=== PATIENT | male | born 1950 | race Caucasian/White ===

== ENCOUNTER 2023-05-23 11:44 | Inpatient (IN) | payer MEDICARE ==
[2023-05-23] VITALS (7 sets, daily range): BP systolic 108–167; BP diastolic 69–93; PULSE 65–77; RESP 18; TEMP 96–97.8; O2SAT 97–100
[~2023-05-23] VITALS: Ht 170.2 cm; Wt 79.8 kg
[2023-05-23 12:27] LABS: BASOPHILS % 0.3 % (0.0-1.0); EOSINOPHILS # (AUTO) 0.1 (0.0-0.4); EOSINOPHILS % 0.6 % (0.0-6.0); HEMATOCRIT 39.8 % (38.2-49.6); HEMOGLOBIN 13.9 g/dL (14.0-18.0); LYMPHOCYTES % 8.3 % (18.0-39.1); MEAN CORPUSCULAR HEMOGLOBIN 29.7 pg (28-32); MEAN CORPUSCULAR HGB CONC 34.9 g/dL (31-35); MONOCYTES % 8.8 % (4.4-11.3); NEUTROPHILS # (AUTO) 9.7 (2.1-6.9); NEUTROPHILS % 81.5 % (38.7-80.0); PLATELET COUNT 358 x10e3/uL (140-360); RED BLOOD COUNT 4.68 x10e6/uL (4.3-5.7); RED CELL DISTRIBUTION WIDTH 12.9 % (11.7-14.4); WHITE BLOOD COUNT 11.84 x10e3/uL (4.8-10.8)
[2023-05-23 12:41] LABS: CLARITY,URINE CLOUDY (CLEAR); COLOR,URINE YELLOW (YELLOW); GLUCOSE, URINE NEGATIVE (NEGATIVE); LEUKOCYTE ESTERASE ,URINE NEGATIVE (NEGATIVE); NITRITE,URINE NEGATIVE (NEGATIVE); PH,URINE 7 (5 - 7); PROTEIN,URINE DIPSTICK NEGATIVE (NEGATIVE)
[2023-05-23 12:42] LABS: BILIRUBIN,URINE NEGATIVE (NEGATIVE); KETONES,URINE 1+ (NEGATIVE); URINE UROBILINOGEN 0.2 mg/dL (0.2 - 1)
[2023-05-23 12:55] LABS: ALBUMIN 3.6 g/dL (3.5-5.0); ALBUMIN/GLOBULIN RATIO 1.2 (0.8-2.0); ANION GAP 14.5 mmol/L (8-16); CALCIUM 8.9 mg/dL (8.4-10.2); CREATININE, SERUM 0.68 mg/dL (0.72-1.25); POTASSIUM 4.5 mmol/L (3.5-5.1); TOTAL PROTEIN 6.7 g/dL (6.5-8.1)
[2023-05-23 13:03] LABS: BACTERIA,URINE FEW /HPF; EPITHELIAL CELLS,URINE RARE /LPF; RBC,URINE 0-5 /HPF (0-5); WBC,URINE (MAN) 0-5 /HPF (0-5)
[2023-05-23] MEDS ORDERED: SODIUM CHLORIDE 0.9% 1000ML 1,000 ML IV SCH (14:00)
[2023-05-23] MEDS ORDERED: LISINOPRIL10 MG PO (18:15)
[2023-05-23] MEDS ORDERED: ONDANSETRON HCL INJ 2MG/ML 2ML 2 MG/ML VIAL IV PRN (21:45)
[2023-05-23] MEDS ORDERED: POLYETHYLENE GLYCOL 3350 17 GM PACK PO PRN (21:45)
[2023-05-23] MEDS ORDERED: HYDRALAZINE HCL 20 MG/ML VIAL IV PRN (21:45)
[2023-05-23] MEDS: SODIUM CHLORIDE 0.9% 1000ML 1,000 ML IV SCH (22:29)
[2023-05-24] VITALS (11 sets, daily range): BP systolic 110–149; BP diastolic 56–81; PULSE 64–78; RESP 18–20; TEMP 97.4–98.4; O2SAT 95–100
[2023-05-24 05:53] LABS: BASOPHILS % 0.3 % (0.0-1.0); EOSINOPHILS # (AUTO) 0.1 (0.0-0.4); EOSINOPHILS % 1.3 % (0.0-6.0); HEMATOCRIT 36.9 % (38.2-49.6); HEMOGLOBIN 12.9 g/dL (14.0-18.0); LYMPHOCYTES # (AUTO) 0.9 (1.0-3.2); LYMPHOCYTES % 8.7 % (18.0-39.1); MEAN CORPUSCULAR HEMOGLOBIN 29.6 pg (28-32); MEAN CORPUSCULAR VOLUME 84.6 fL (81-99); MONOCYTES % 9.4 % (4.4-11.3); NEUTROPHILS # (AUTO) 8.3 (2.1-6.9); NEUTROPHILS % 79.9 % (38.7-80.0); PLATELET COUNT 335 x10e3/uL (140-360); RED BLOOD COUNT 4.36 x10e6/uL (4.3-5.7); RED CELL DISTRIBUTION WIDTH 12.7 % (11.7-14.4); WHITE BLOOD COUNT 10.44 x10e3/uL (4.8-10.8)
[2023-05-24 06:22] LABS: ANION GAP 11.1 mmol/L (8-16); CALCIUM 8.1 mg/dL (8.4-10.2); CREATININE, SERUM 0.65 mg/dL (0.72-1.25); POTASSIUM 4.1 mmol/L (3.5-5.1)
[2023-05-24 06:40] LABS: CHOL/HDL RATIO 2.4 (3.9-4.7); MAGNESIUM 1.8 MG/DL (1.3-2.1); PHOSPHORUS 3.7 MG/DL (2.3-4.7)
[2023-05-24 06:57] LABS: FERRITIN 62.27 ng/mL (21.81-274.66); FREE T4 (FREE THYROXINE) 1.16 ng/dL (0.8-1.8); THYROID STIMULATING HORMONE 0.727 uIU/mL (0.350-4.940)
[2023-05-24 08:46] LABS: FOLATE 9.9 ng/mL (7.0-15.4)
[2023-05-24] MEDS: FAMOTIDINE 20 MG TAB PO SCH ×2 (09:08→17:27)
[2023-05-24] MEDS: DOCUSATE SODIUM 100 MG CAP PO SCH ×2 (09:08→17:27)
[2023-05-24] MEDS: IRON SUCROSE 100 MG in SODIUM CHLORIDE 0.9% 100 ML IV SCH (09:08)
[2023-05-24] MEDS: SODIUM CHLORIDE 0.9% 1000ML 1,000 ML IV SCH (09:08)
[2023-05-24] MEDS: ACETAMINOPHEN 325 MG TAB PO PRN (11:00)
[2023-05-24] MEDS ORDERED: ONDANSETRON HCL 4 MG ORAL DISINTEGRATING TAB PO PRN (11:15)
[2023-05-25] VITALS (9 sets, daily range): BP systolic 102–142; BP diastolic 58–92; PULSE 52–72; RESP 11–19; TEMP 97.1–97.9; O2SAT 96–99
[2023-05-25 06:27] LABS: ANION GAP 8.2 mmol/L (8-16); CALCIUM 7.9 mg/dL (8.4-10.2); CREATININE, SERUM 0.63 mg/dL (0.72-1.25); POTASSIUM 4.2 mmol/L (3.5-5.1)
[2023-05-25] MEDS: FAMOTIDINE 20 MG TAB PO SCH ×2 (08:46→16:58)
[2023-05-25] MEDS: IRON SUCROSE 100 MG in SODIUM CHLORIDE 0.9% 100 ML IV SCH (08:48)
[2023-05-25] MEDS: SODIUM CHLORIDE 1 GM TAB PO SCH ×3 (10:12→20:51)
[2023-05-25] MEDS: DOCUSATE SODIUM 100 MG CAP PO SCH ×2 (10:12→16:59)
[2023-05-25] MEDS ORDERED: SODIUM CHLORIDE 452MG TAB PO SCH (15:00)
[2023-05-25 15:46] LABS: CALCIUM 7.6 mg/dL (8.4-10.2); CREATININE, SERUM 0.59 mg/dL (0.72-1.25)
[2023-05-25] MEDS: METOPROLOL SUCCINATE 25 MG TAB XL PO SCH (18:15)
[2023-05-25] MEDS ORDERED: SODIUM CHLORIDE 3% 200 ML IV ONE (21:00)
[2023-05-25] MEDS: ACETAMINOPHEN 325 MG TAB PO PRN (22:54)
[2023-05-26] VITALS (29 sets, daily range): BP systolic 72–151; BP diastolic 39–103; PULSE 46–87; RESP 9–21; TEMP 97.3–98; O2SAT 92–100
[2023-05-26 04:52] LABS: ANION GAP 8.1 mmol/L (8-16); CALCIUM 7.9 mg/dL (8.4-10.2); CREATININE, SERUM 0.63 mg/dL (0.72-1.25); POTASSIUM 4.1 mmol/L (3.5-5.1)
[2023-05-26] MEDS: FAMOTIDINE 20 MG TAB PO SCH ×2 (07:52→16:42)
[2023-05-26 08:31] LABS: BASOPHILS % 0.4 % (0.0-1.0); EOSINOPHILS # (AUTO) 0.1 (0.0-0.4); EOSINOPHILS % 1.2 % (0.0-6.0); HEMATOCRIT 36.4 % (38.2-49.6); HEMOGLOBIN 12.8 g/dL (14.0-18.0); LYMPHOCYTES # (AUTO) 0.9 (1.0-3.2); MEAN CORPUSCULAR HEMOGLOBIN 29.6 pg (28-32); MEAN CORPUSCULAR HGB CONC 35.2 g/dL (31-35); MEAN CORPUSCULAR VOLUME 84.3 fL (81-99); MONOCYTES # (AUTO) 0.7 (0.2-0.8); MONOCYTES % 6.3 % (4.4-11.3); NEUTROPHILS # (AUTO) 9.4 (2.1-6.9); NEUTROPHILS % 83.7 % (38.7-80.0); PLATELET COUNT 312 x10e3/uL (140-360); RED BLOOD COUNT 4.32 x10e6/uL (4.3-5.7); RED CELL DISTRIBUTION WIDTH 12.7 % (11.7-14.4)
[2023-05-26] MEDS: METOPROLOL SUCCINATE 25 MG TAB XL PO SCH (08:58)
[2023-05-26] MEDS: SODIUM CHLORIDE 1 GM TAB PO SCH ×3 (08:59→19:57)
[2023-05-26] MEDS: DOCUSATE SODIUM 100 MG CAP PO SCH ×2 (08:59→16:42)
[2023-05-26] MEDS: IRON SUCROSE 100 MG in SODIUM CHLORIDE 0.9% 100 ML IV SCH (11:40)
[2023-05-27] VITALS (14 sets, daily range): BP systolic 91–141; BP diastolic 56–87; PULSE 55–78; RESP 12–22; TEMP 97.2–98.3; O2SAT 96–99
[2023-05-27 05:13] LABS: ANION GAP 11.2 mmol/L (8-16); CALCIUM 8.1 mg/dL (8.4-10.2); CREATININE, SERUM 0.64 mg/dL (0.72-1.25); MAGNESIUM 1.7 MG/DL (1.3-2.1); POTASSIUM 4.2 mmol/L (3.5-5.1)
[2023-05-27] MEDS: FAMOTIDINE 20 MG TAB PO SCH ×2 (08:11→17:32)
[2023-05-27] MEDS: SODIUM CHLORIDE 1 GM TAB PO SCH (08:36)
[2023-05-27] MEDS: DOCUSATE SODIUM 100 MG CAP PO SCH ×2 (08:37→17:32)
[2023-05-27] MEDS: METOPROLOL SUCCINATE 25 MG TAB XL PO SCH (08:37)
[2023-05-27] MEDS ORDERED: SODIUM CHLORIDE 3% 500 ML IV ONE (11:15)
[2023-05-27] MEDS ORDERED: FUROSEMIDE INJ 10 MG/ML 2 ML VIAL IV ONE (18:35)
[2023-05-27] MEDS: ACETAMINOPHEN 325 MG TAB PO PRN (22:51)
[2023-05-27] MEDS ORDERED: LORAZEPAM INJ 2 MG/ML VIAL IV ONE (23:15)
[2023-05-28] VITALS (15 sets, daily range): BP systolic 87–124; BP diastolic 56–70; PULSE 52–83; RESP 10–20; TEMP 96.5–97.8; O2SAT 95–99
[2023-05-28 06:48] LABS: ANION GAP 10.3 mmol/L (8-16); CALCIUM 8.2 mg/dL (8.4-10.2); CREATININE, SERUM 0.63 mg/dL (0.72-1.25); POTASSIUM 4.3 mmol/L (3.5-5.1)
[2023-05-28] MEDS: FAMOTIDINE 20 MG TAB PO SCH ×2 (07:44→16:06)
[2023-05-28] MEDS: METOPROLOL SUCCINATE 25 MG TAB XL PO SCH (08:14)
[2023-05-28] MEDS: DOCUSATE SODIUM 100 MG CAP PO SCH ×2 (08:14→16:06)
[2023-05-28] MEDS: TOLVAPTAN 15 MG TAB PO SCH (16:06)
[2023-05-28 21:47] LABS: ANION GAP 10.7 mmol/L (8-16); CALCIUM 8.2 mg/dL (8.4-10.2); CREATININE, SERUM 0.76 mg/dL (0.72-1.25); POTASSIUM 4.7 mmol/L (3.5-5.1)
[2023-05-29] VITALS (16 sets, daily range): BP systolic 80–111; BP diastolic 44–67; PULSE 58–80; RESP 11–16; TEMP 97–99.6; O2SAT 94–98
[2023-05-29 06:01] LABS: ANION GAP 13.7 mmol/L (8-16); CREATININE, SERUM 0.72 mg/dL (0.72-1.25); POTASSIUM 4.7 mmol/L (3.5-5.1)
[2023-05-29] MEDS: METOPROLOL SUCCINATE 25 MG TAB XL PO SCH (09:00)
[2023-05-29] MEDS: TOLVAPTAN 15 MG TAB PO SCH (09:07)
[2023-05-29] MEDS: FAMOTIDINE 20 MG TAB PO SCH ×2 (09:07→16:48)
[2023-05-29] MEDS: DOCUSATE SODIUM 100 MG CAP PO SCH ×2 (09:07→16:48)
[2023-05-29] MEDS: SODIUM CHLORIDE 0.9% 1000ML 1,000 ML IV SCH ×2 (10:49→20:28)
[2023-05-29 16:30] LABS: ANION GAP 12.5 mmol/L (8-16); CALCIUM 7.9 mg/dL (8.4-10.2); CREATININE, SERUM 0.83 mg/dL (0.72-1.25); POTASSIUM 4.5 mmol/L (3.5-5.1)
[2023-05-29] MEDS: ACETAMINOPHEN 325 MG TAB PO PRN (21:07)
[2023-05-30] VITALS (16 sets, daily range): BP systolic 101–138; BP diastolic 50–75; PULSE 53–72; RESP 10–18; TEMP 97.7–98.6; O2SAT 92–98
[2023-05-30] MEDS: SODIUM CHLORIDE 0.9% 1000ML 1,000 ML IV SCH ×2 (06:21→17:18)
[2023-05-30] MEDS: TOLVAPTAN 15 MG TAB PO SCH (08:36)
[2023-05-30] MEDS: METOPROLOL SUCCINATE 25 MG TAB XL PO SCH (08:36)
[2023-05-30] MEDS: DOCUSATE SODIUM 100 MG CAP PO SCH ×2 (08:36→17:18)
[2023-05-30] MEDS: FAMOTIDINE 20 MG TAB PO SCH ×2 (08:37→17:18)
[2023-05-30 12:51] LABS: BASOPHILS % 0.3 % (0.0-1.0); EOSINOPHILS # (AUTO) 0.1 (0.0-0.4); EOSINOPHILS % 1.1 % (0.0-6.0); HEMATOCRIT 33.6 % (38.2-49.6); HEMOGLOBIN 11.7 g/dL (14.0-18.0); LYMPHOCYTES # (AUTO) 0.7 (1.0-3.2); LYMPHOCYTES % 7.6 % (18.0-39.1); MEAN CORPUSCULAR HGB CONC 34.8 g/dL (31-35); MEAN CORPUSCULAR VOLUME 86.2 fL (81-99); MONOCYTES # (AUTO) 1.7 (0.2-0.8); MONOCYTES % 17.7 % (4.4-11.3); NEUTROPHILS # (AUTO) 7.1 (2.1-6.9); NEUTROPHILS % 72.6 % (38.7-80.0); PLATELET COUNT 247 x10e3/uL (140-360); RED CELL DISTRIBUTION WIDTH 13.4 % (11.7-14.4); WHITE BLOOD COUNT 9.74 x10e3/uL (4.8-10.8)
[2023-05-30 13:11] LABS: ANION GAP 11.2 mmol/L (8-16); CALCIUM 7.9 mg/dL (8.4-10.2); CREATININE, SERUM 0.7 mg/dL (0.72-1.25); POTASSIUM 4.2 mmol/L (3.5-5.1)
[2023-05-31] VITALS (23 sets, daily range): BP systolic 121–162; BP diastolic 62–114; PULSE 60–98; RESP 10–18; TEMP 97.5–98.6; O2SAT 90–100
[2023-05-31] MEDS: SODIUM CHLORIDE 0.9% 1000ML 1,000 ML IV SCH (04:54)
[2023-05-31 06:46] LABS: BASOPHILS % 0.3 % (0.0-1.0); EOSINOPHILS # (AUTO) 0.1 (0.0-0.4); HEMATOCRIT 32.9 % (38.2-49.6); HEMOGLOBIN 11.6 g/dL (14.0-18.0); LYMPHOCYTES # (AUTO) 0.8 (1.0-3.2); MEAN CORPUSCULAR HEMOGLOBIN 30.3 pg (28-32); MEAN CORPUSCULAR HGB CONC 35.3 g/dL (31-35); MEAN CORPUSCULAR VOLUME 85.9 fL (81-99); MONOCYTES # (AUTO) 1.8 (0.2-0.8); MONOCYTES % 14.9 % (4.4-11.3); NEUTROPHILS % 76.1 % (38.7-80.0); PLATELET COUNT 248 x10e3/uL (140-360); RED BLOOD COUNT 3.83 x10e6/uL (4.3-5.7); RED CELL DISTRIBUTION WIDTH 13.4 % (11.7-14.4); WHITE BLOOD COUNT 11.78 x10e3/uL (4.8-10.8)
[2023-05-31 07:00] LABS: ANION GAP 11.5 mmol/L (8-16); CALCIUM 7.1 mg/dL (8.4-10.2); CREATININE, SERUM 0.57 mg/dL (0.72-1.25); POTASSIUM 3.5 mmol/L (3.5-5.1)
[2023-05-31] MEDS: METOPROLOL SUCCINATE 25 MG TAB XL PO SCH (08:46)
[2023-05-31] MEDS: TOLVAPTAN 15 MG TAB PO SCH (08:46)
[2023-05-31] MEDS: DOCUSATE SODIUM 100 MG CAP PO SCH ×2 (08:46→16:58)
[2023-05-31] MEDS: FAMOTIDINE 20 MG TAB PO SCH ×2 (08:46→16:58)
[2023-05-31] MEDS ORDERED: LORAZEPAM INJ 2 MG/ML VIAL IV ONE (17:15)
[2023-06-01] VITALS (14 sets, daily range): BP systolic 93–155; BP diastolic 56–87; PULSE 54–74; RESP 11–20; TEMP 97–98.3; O2SAT 91–98
[2023-06-01 06:40] LABS: ANION GAP 12.1 mmol/L (8-16); CALCIUM 8.4 mg/dL (8.4-10.2); CREATININE, SERUM 0.64 mg/dL (0.72-1.25); POTASSIUM 4.1 mmol/L (3.5-5.1)
[2023-06-01] MEDS: TOLVAPTAN 15 MG TAB PO SCH (08:13)
[2023-06-01] MEDS: DOCUSATE SODIUM 100 MG CAP PO SCH ×2 (08:14→18:30)
[2023-06-01] MEDS: FAMOTIDINE 20 MG TAB PO SCH ×2 (08:14→18:30)
[2023-06-01] MEDS: METOPROLOL SUCCINATE 25 MG TAB XL PO SCH (08:14)
[2023-06-02] VITALS (9 sets, daily range): BP systolic 99–133; BP diastolic 62–72; PULSE 56–72; RESP 18–21; TEMP 98–98.6; O2SAT 95–98
[2023-06-02 07:07] LABS: ANION GAP 11.5 mmol/L (8-16); CALCIUM 8.4 mg/dL (8.4-10.2); CREATININE, SERUM 0.7 mg/dL (0.72-1.25); POTASSIUM 4.5 mmol/L (3.5-5.1)
[2023-06-02] MEDS: FAMOTIDINE 20 MG TAB PO SCH ×2 (09:33→17:19)
[2023-06-02] MEDS: DOCUSATE SODIUM 100 MG CAP PO SCH ×2 (09:33→17:19)
[2023-06-02] MEDS: METOPROLOL SUCCINATE 25 MG TAB XL PO SCH (09:44)
[2023-06-02] MEDS: TOLVAPTAN 15 MG TAB PO SCH (11:33)
[2023-06-03] VITALS: BP 115/61; PULSE 60; RESP 17; TEMP 97.8; O2SAT 97
[2023-06-03 04:00] VITALS: BP 131/73; PULSE 71; RESP 17; TEMP 97.6; O2SAT 97
[2023-06-03 06:10] LABS: ANION GAP 13.4 mmol/L (8-16); CALCIUM 8.5 mg/dL (8.4-10.2); CREATININE, SERUM 0.77 mg/dL (0.72-1.25); POTASSIUM 4.4 mmol/L (3.5-5.1)
[2023-06-03 08:31] VITALS: BP 120/74; PULSE 66; RESP 20; TEMP 97.3; O2SAT 96
[2023-06-03] MEDS: METOPROLOL SUCCINATE 25 MG TAB XL PO SCH (09:17)
[2023-06-03] MEDS: TOLVAPTAN 15 MG TAB PO SCH (09:17)
[2023-06-03] MEDS: DOCUSATE SODIUM 100 MG CAP PO SCH ×2 (09:17→17:09)
[2023-06-03] MEDS: FAMOTIDINE 20 MG TAB PO SCH ×2 (09:17→17:11)
[2023-06-03 09:23] VITALS: BP 120/74; PULSE 66; RESP 20; TEMP 97.3; O2SAT 96
[2023-06-03 12:17] VITALS: PULSE 62; RESP 18; TEMP 97.7; O2SAT 96
[2023-06-03 15:56] VITALS: BP 118/67; PULSE 64; RESP 20; TEMP 97.7; O2SAT 100
== END 2023-06-03 18:15 | disposition short-term general hospital (02) | DRG 643 ==
LOC: ER 11:50 → ERHOLD 13:52 → MED/SURG2 15:23 → OBSVTOIN 05-24 08:06 → ICU 05-25 20:10 → MED/SURG2 06-01 09:20
PROVIDERS: ADMIT Internal Medicine; ATTEND Internal Medicine
PROC: 02HV33Z Insertion of Infusion Device into Superior Vena Cava, Percutaneous Approach (ICD-10-PCS; principal; 2023-05-25)
DX: E22.2 Syndrome of inappropriate secretion of antidiuretic hormone (principal); G93.41 Metabolic encephalopathy; E87.20 Acidosis, unspecified; G99.2 Myelopathy in diseases classified elsewhere; I10 Essential (primary) hypertension; G47.33 Obstructive sleep apnea (adult) (pediatric); E86.0 Dehydration; T68.XXXA Hypothermia, initial encounter; R29.6 Repeated falls; H91.90 Unspecified hearing loss, unspecified ear; E55.9 Vitamin D deficiency, unspecified; M17.12 Unilateral primary osteoarthritis, left knee; D72.829 Elevated white blood cell count, unspecified; R13.10 Dysphagia, unspecified; I49.3 Ventricular premature depolarization; D50.9 Iron deficiency anemia, unspecified; R53.1 Weakness; Z11.52 Encounter for screening for COVID-19; M48.02 Spinal stenosis, cervical region; M54.12 Radiculopathy, cervical region
CPT/HCPCS: 36415; 36569; 70450; 70551; 71045; 72141; 80048; 80053; 80061; 81001; 82607; 82728; 82746; 83036; 83540; 83735; 83880; 83930; 83935; 84100; 84295; 84300; 84439; 84443; 84466; 84484; 85025; 85045; 87400; 93005; 93306; 94799; 95812; 99252; 99284; G0378; J1756; J1940; J2060; J7030; J7050; J7131; U0002